=== PATIENT | female | born 1980 | race Caucasian/White ===

== ENCOUNTER 2016-07-15 08:44 | Emergency (ER) | payer OTHER ==
[~2016-07-15 08:44] MED LIST: COLACE100 MG PO; IBUPROFEN600 MG PO; NORCO 5-325 TA1 EACH PO; PHENERGAN 25 MG25 M1 PO
[2016-07-15 09:26] LABS: HEMOGLOBIN 14.7 gm/dl (12.3-15.3); RED BLOOD COUNT 4.95 M/UL (4.00-5.10); WHITE BLOOD COUNT 10.5 K/UL (4.5-11.0)
[2016-07-15 09:34] LABS: BUN/CREATININE RATIO 16 (0-10)
== END 2016-07-15 12:12 | disposition home or self-care (01) ==
LOC: ER1 08:44
PROVIDERS: Student in an Organized Health Care Education/Training Program
DX: N39.0 Urinary tract infection, site not specified (principal); E11.9 Type 2 diabetes mellitus without complications; I10 Essential (primary) hypertension; F17.200 Nicotine dependence, unspecified, uncomplicated; Z88.0 Allergy status to penicillin; Z90.49 Acquired absence of other specified parts of digestive tract; Z79.899 Other long term (current) drug therapy
CPT/HCPCS: 36415; 80053; 81001; 82150; 83690; 85025; 96374; 96375; 99284; J1885; J2270; J2405

== ENCOUNTER 2016-12-31 12:41 | Emergency (ER) | payer OTHER ==
[2016-12-31 13:27] LABS: HEMOGLOBIN 15.4 gm/dl (12.3-15.3); RED BLOOD COUNT 5.12 M/UL (4.00-5.10); WHITE BLOOD COUNT 13.2 K/UL (4.5-11.0)
[2016-12-31 13:53] LABS: BUN/CREATININE RATIO 11 (0-10)
== END 2016-12-31 16:00 | disposition home or self-care (01) ==
LOC: ER1 12:41
PROVIDERS: Emergency Medicine
DX: R10.819 Abdominal tenderness, unspecified site (principal); F17.200 Nicotine dependence, unspecified, uncomplicated; R11.2 Nausea with vomiting, unspecified; R19.7 Diarrhea, unspecified; Z88.0 Allergy status to penicillin
CPT/HCPCS: 36415; 80053; 81001; 82150; 83690; 85025; 96374; 96375; 99284; C9113; J2405; J7030

== ENCOUNTER 2020-10-27 15:47 | Emergency (ER) | payer OTHER ==
[~2020-10-27 15:47] MED LIST changes: +ALBUTEROL0.63 MG/3 INH; +BACTRIM DS TAB1 EACH PO; +BACTROBAN OINT22 GM EXT; +BENTYL 20MG TAB20 MG PO; +Bromphed DM PO; +FLEXERIL 10 MG10 MG PO; +FLONASE 0.05% N16 GM; +IBUPROFEN800 MG PO; +KEFLEX500 MG PO; +OMNICEF 300 MG300 MG PO; +TESSALON PERLE100 MG PO; +TRIPLE ANTIBIO1 EACH TP; +VENTOLIN HFA 66.7 GM INH; +ZOFRAN ODT 4 MG4 MG SL; +ZYRTEC10 MG PO
[2020-10-27 17:50] LABS: HEMOGLOBIN 15.2 gm/dl (12.3-15.3); RED BLOOD COUNT 4.88 M/UL (4.00-5.10); WHITE BLOOD COUNT 12.7 K/UL (4.5-11.0)
[2020-10-27 18:12] LABS: BUN/CREATININE RATIO 13 (0-10)
[2020-10-27] MEDS ORDERED: COLACE 100MG C100 MG PO (20:41)
[2020-11-27] MEDS ORDERED: BACLOFEN10 MG PO (10:03)
[2020-11-27] MEDS ORDERED: AMITRIPTYLINE H25 MG PO (10:03)
[2020-11-27] MEDS ORDERED: PEPCID40 MG PO (10:05)
[2020-11-27] MEDS ORDERED: LISINOPRIL-HCT1 EAC1 PO (10:06)
[2020-11-27] MEDS ORDERED: MELOXICAM7.5 MG PO (10:07)
[2020-11-27] MEDS ORDERED: MECLIZINE HCL25 MG PO (10:07)
[2020-11-27] MEDS ORDERED: METOPROLOL TART50 MG PO (10:08)
[2020-11-27] MEDS ORDERED: ROPINIROLE HCL2 MG PO (10:09)
[2020-11-27] MEDS ORDERED: SIMVASTATIN10 MG PO (10:10)
[2020-11-27] MEDS ORDERED: GABAPENTIN400 MG PO (10:11)
[2020-11-27] MEDS ORDERED: HYDROCODON-ACE1 EAC6 PO (10:13)
[2020-11-27] MEDS ORDERED: ZOFRAN ODT 4 MG4 MG PO (10:14)
[2020-11-27] MEDS ORDERED: VITAMIN D21250 MCG PO (10:14)
== END 2020-10-27 21:15 | disposition home or self-care (01) ==
LOC: ER1 15:47
PROVIDERS: Physician Assistant Medical
DX: K62.3 Rectal prolapse (principal); K59.00 Constipation, unspecified; I10 Essential (primary) hypertension; E78.5 Hyperlipidemia, unspecified; J45.909 Unspecified asthma, uncomplicated; Z90.49 Acquired absence of other specified parts of digestive tract; Z90.710 Acquired absence of both cervix and uterus; Z88.0 Allergy status to penicillin
CPT/HCPCS: 80053; 81001; 85025; 85610; 99284; Q9967

== ENCOUNTER → 2020-11-27 | Outpatient (CLI) | payer OTHER ==
[~2020-11-27] MED LIST changes: +AMITRIPTYLINE H25 MG PO; +BACLOFEN10 MG PO; +COLACE 100MG C100 MG PO; +GABAPENTIN400 MG PO; +HYDROCODON-ACE1 EAC6 PO; +LISINOPRIL-HCT1 EAC1 PO; +MECLIZINE HCL25 MG PO; +MELOXICAM7.5 MG PO; +METOPROLOL TART50 MG PO; +PEPCID40 MG PO; +ROPINIROLE HCL2 MG PO; +SIMVASTATIN10 MG PO; +VITAMIN D21250 MCG PO; +ZOFRAN ODT 4 MG4 MG PO
[2020-11-27 10:07] LABS: HEMOGLOBIN 13.9 gm/dl (12.3-15.3); RED BLOOD COUNT 4.77 M/UL (4.00-5.10); WHITE BLOOD COUNT 10.4 K/UL (4.5-11.0)
[2020-11-27 10:29] LABS: BUN/CREATININE RATIO 12 (0-10)
== END ==
LOC: OPSV2 09:28
PROVIDERS: Obstetrics & Gynecology
DX: Z01.812 Encounter for preprocedural laboratory examination (principal); N81.9 Female genital prolapse, unspecified; Z88.0 Allergy status to penicillin
CPT/HCPCS: 36415; 80053; 81001; 85025

== ENCOUNTER → 2020-12-04 | Day surgery (SDC) | payer OTHER ==
[~2020-12-04] VITALS: Ht 157.5 cm; Wt 86.6 kg
== END | disposition home or self-care (01) ==
LOC: OR 06:45
DX: N81.6 Rectocele (principal); K59.00 Constipation, unspecified; R33.9 Retention of urine, unspecified; I10 Essential (primary) hypertension; F17.210 Nicotine dependence, cigarettes, uncomplicated; J44.9 Chronic obstructive pulmonary disease, unspecified; F41.9 Anxiety disorder, unspecified; Z88.0 Allergy status to penicillin; Z20.822 Contact with and (suspected) exposure to COVID-19
CPT/HCPCS: 93005; C1769; J1100; J1170; J1580; J1885; J2001; J2250; J2405; J2704; J2710; J3010; J7050; J7120

== ENCOUNTER 2021-12-28 14:24 | Emergency (ER) | payer OTHER ==
[2021-12-28] MEDS ORDERED: BENZONATATE200 MG PO (19:13)
== END 2021-12-28 20:00 | disposition home or self-care (01) ==
LOC: ER1 14:24
DX: U07.1 COVID-19 (principal); J44.9 Chronic obstructive pulmonary disease, unspecified; I10 Essential (primary) hypertension; F17.200 Nicotine dependence, unspecified, uncomplicated; Z88.0 Allergy status to penicillin
CPT/HCPCS: 71045; 96372; 99283; J1885; U0002